=== PATIENT | male | born 1950 | race Asian ===

== ENCOUNTER 2017-02-21 08:57 | Emergency (ER) | payer BC, MEDICARE ==
[~2017-02-21] VITALS: Ht 170.2 cm; Wt 70.0 kg
[2017-02-21 10:40] LABS: BLOOD UREA NITROGEN 28 mg/dL (7-18)
[2017-02-21 10:45] LABS: IS PT STATUS REG ER OR PRE ER? YES
[2017-02-21 10:49] LABS: HEMATOCRIT 40.8 % (39.2-51.8); HEMOGLOBIN 14.1 g/dL (13.7-18.0); WHITE BLOOD COUNT 5.5 x10^3/uL (3.4-10)
[2017-02-21 11:19] VITALS: BP 171/78
== END 2017-02-21 11:35 | disposition home or self-care (01) ==
LOC: ED 11:33
DX: R06.00 Dyspnea, unspecified (principal); E11.9 Type 2 diabetes mellitus without complications; I11.0 Hypertensive heart disease with heart failure; I50.9 Heart failure, unspecified; Z88.8 Allergy status to other drugs, medicaments and biological substances
CPT/HCPCS: 36415; 74022; 80048; 82040; 83880; 84484; 85025; 93005; 99285